=== PATIENT | female | born 1975 ===

== ENCOUNTER → 2018-10-03 | Outpatient (CLI) | payer BC, OTHER ==
[~2018-10-03] MED LIST: LANS30CA70 PO; NORG1TAB6 PO
--- NOTE | 2018-10-04 08:37 | RADIOLOGY IMAGING REPORT ---
FACILITY: [facility] [place] PATIENT NAME: AMINATA GOODSON : [id number] MR: [id number]: [id number] EXAM DATE: ORDERING PHYSICIAN: AGNIESZKA WOLFF TECHNOLOGIST: Elsa Ball PROCEDURE:BILATERAL DIGITAL SCREENING MAMMOGRAM WITH CAD ASSISTED INTERPRETATION & 3D TOMOSYNTHESIS COMPARISON:Prior mammograms 08/16/17. INDICATIONS:SCREENING FINDINGS: The breasts are heterogeneously dense which can obscure small masses. The parenchymal pattern has remained stable allowing for difference in mammographic technique & patient positioning. There is no evidence of malignant appearing mass, malignant appearing calcifications or other secondary sign of malignancy in either breast. DIAGNOSTIC CATEGORY 1--NEGATIVE. RECOMMENDATIONS: ROUTINE MAMMOGRAM AND CLINICAL EVALUATION. IMPRESSION: BIRADS 1: Negative. No significant abnormality is seen. Dictated by: Libby Malhotra M.D. on 10/03/2018 at 16:49 Transcribed by: EMILY on 10/04/2018 at 7:58 Approved by: Libby Malhotra M.D. on 10/04/2018 at 8:36 [facility]
== END ==
LOC: MAMO 01:17
PROVIDERS: ATTEND Nurse Practitioner Family
DX: Z12.31 Encounter for screening mammogram for malignant neoplasm of breast (principal)
CPT/HCPCS: 77063; 77067